=== PATIENT | male | born 1955 | race Caucasian/White ===

== ENCOUNTER 2019-04-29 06:14 | Inpatient (IN) | payer MEDICARE, OTHER ==
[~2019-04-29] VITALS: Ht 180.3 cm; Wt 120.0 kg
[~2019-04-29 06:14] MED LIST: AMIT50TA PO; AMLODIPINE PO; CHOL10003 PO; GABA-826 PO; LISINOPRIL PO; MULT-516 PO; OMEP-110 PO; PRAVASTATIN PO; ZETIA PO
[2019-04-29] MEDS ORDERED: BACITRACIN 50,000 UNIT ONE (06:37)
[2019-04-29] MEDS ORDERED: BUPIVACAINE/PF 0.5% ONE (06:37)
[2019-04-29] MEDS ORDERED: THROMBIN 5,000 UNIT VIAL TP ONE (06:37)
[2019-04-29] MEDS ORDERED: EPINEPHRINE 1 MG/ML, 1ML ONE (06:37)
[2019-04-29] MEDS ORDERED: DULO30CA2 PO (07:09)
[2019-04-29] MEDS ORDERED: DISU250T15 PO (07:09)
[2019-04-29] MEDS ORDERED: LISI40TA PO (07:14)
[2019-04-29] MEDS ORDERED: AMLO10TA8 PO (07:14)
[2019-04-29] MEDS ORDERED: EZET10TA70 PO (07:14)
[2019-04-29] MEDS ORDERED: PRAV40TA2 PO (07:14)
[2019-04-29] MEDS ORDERED: LACTATED RINGERS 1,000 ML IV SCH (07:20)
[2019-04-29] MEDS ORDERED: FENTANYL PF 250 MCG/5ML ONE (09:53)
[2019-04-29] MEDS ORDERED: MIDAZOLAM 1 MG/ML, 2ML ONE (09:53)
[2019-04-29] MEDS ORDERED: ACETAMINOPHEN 500 MG TABLET ONE ×2 (10:34→11:01)
[2019-04-29] MEDS ORDERED: GABAPENTIN 300 MG CAPSULE ONE ×2 (10:34→11:01)
[2019-04-29] MEDS ORDERED: PROPOFOL 250 ML ONE (10:47)
[2019-04-29] MEDS ORDERED: EPHEDRINE 50 MG/ML, 1ML ONE (11:01)
[2019-04-29] MEDS ORDERED: LABETALOL 5MG/ML, 20ML IV PRN (12:30)
[2019-04-29] MEDS ORDERED: MEPERIDINE/PF 25MG/0.5ML IVPush PRN (12:30)
[2019-04-29] MEDS ORDERED: PROMETHAZINE 25 MG/ML, 1ML IV PRN (12:30)
[2019-04-29] MEDS ORDERED: DIAZEPAM 5 MG/ML, 2ML IVPush PRN (12:30)
[2019-04-29] MEDS ORDERED: ALBUTEROL SULFATE 2.5 MG/3 ML NPPB PRN (12:30)
[2019-04-29] MEDS ORDERED: OXYcodone 5 MG/5 ML ORAL.SOL UDC PO PRN (12:30)
[2019-04-29] MEDS ORDERED: ACETAMINOPHEN 325 MG TABLET PO PRN (12:30)
[2019-04-29] MEDS ORDERED: hydrALAzine 20 MG/ML, 1ML IV PRN (12:30)
[2019-04-29] MEDS ORDERED: VANCOMYCIN 1,000 MG ONE (13:11)
[2019-04-29] MEDS ORDERED: GLYCOPYRROLATE 0.2MG/1ML, 5ML ONE (13:33)
[2019-04-29] MEDS ORDERED: ONDANSETRON 2MG/ML, 2ML ONE (13:33)
[2019-04-29] MEDS ORDERED: CEFAZOLIN 1,000 MG ONE (13:33)
[2019-04-29] MEDS ORDERED: DEXAMETHASONE 4 MG/ML, 1ML ONE (13:33)
[2019-04-29] MEDS ORDERED: SUCCINYLCHOLINE 20 MG/ML, 10ML ONE (13:33)
[2019-04-29] MEDS ORDERED: ROCURONIUM 10MG/ML,5ML ONE (13:33)
[2019-04-29] MEDS ORDERED: PROPOFOL 10 MG/ML, 20ML ONE (13:33)
[2019-04-29] MEDS ORDERED: NEOSTIGMINE 1 MG/ML, 10ML ONE (13:33)
[2019-04-29] MEDS ORDERED: OXYcodone 5 MG/5 ML ORAL.SOL UDC ONE (14:17)
[2019-04-29] MEDS ORDERED: FENTANYL PF 100 MCG/2ML ONE (14:17)
[2019-04-29] MEDS: FENTANYL PF 100 MCG/2ML IV PRN ×2 (14:18→14:30)
[2019-04-29] MEDS ORDERED: HYDROmorphone 1 MG/ML, 1ML VIAL ONE (14:18)
[2019-04-29] MEDS ORDERED: HYDROmorphone PCA 30 MG/30 ML IV PRN (14:30)
[2019-04-29] MEDS: HYDROmorphone 2 MG/ML, 1ML IVPush PRN ×2 (14:37→14:51)
[2019-04-29] MEDS ORDERED: hydrALAzine 20 MG/ML, 1ML ONE (15:13)
[2019-04-29 16:10] VITALS: BP 152/97
[2019-04-29] MEDS ORDERED: CYCLOBENZAPRINE 10 MG TABLET PO PRN (16:30)
[2019-04-29] MEDS ORDERED: morphine SULFATE 10 MG/ML, 1ML IV PRN (16:30)
[2019-04-29] MEDS ORDERED: PROMETHAZINE 25 MG/ML, 1ML IM PRN (16:30)
[2019-04-29] MEDS ORDERED: ONDANSETRON 2MG/ML, 2ML IV PRN (16:30)
[2019-04-29] MEDS ORDERED: DIPHENHYDRAMINE 25 MG CAPSULE PO PRN (16:30)
[2019-04-29] MEDS ORDERED: DIPHENHYDRAMINE 50 MG/ML, 1ML IVPush PRN (16:30)
[2019-04-29] MEDS ORDERED: MAGNESIUM HYDROXIDE 8%, 30ML UDC PO PRN (16:30)
[2019-04-29] MEDS ORDERED: BISACODYL 10 MG SUPP PR PRN (16:30)
[2019-04-29] MEDS: NS + 20MEQ KCL 1,000 ML IV SCH (16:47)
[2019-04-29 18:55] VITALS: BP 123/93
[2019-04-29] MEDS: CEFAZOLIN PMX 1GM/50ML 50 ML IVPB SCH (19:45)
[2019-04-29] MEDS: EZETIMIBE 10 MG TABLET PO SCH (22:08)
[2019-04-29] MEDS: PRAVASTATIN 40 MG TABLET PO SCH (22:08)
[2019-04-29] MEDS: GABAPENTIN 100 MG CAPSULE PO SCH (22:08)
[2019-04-29] MEDS: AMITRIPTYLINE 50 MG TABLET PO SCH (22:08)
[2019-04-29 23:17] VITALS: BP 131/74
[2019-04-30] MEDS: CEFAZOLIN PMX 1GM/50ML 50 ML IVPB SCH (03:21)
[2019-04-30] MEDS: NS + 20MEQ KCL 1,000 ML IV SCH ×3 (03:21→22:30)
[2019-04-30 03:44] VITALS: BP 155/96
[2019-04-30 05:37] LABS: BASOPHILS # (AUTO) 0.02 x10^3/uL (0-0.1); BASOPHILS % (AUTO) 0 % (0-1); EOSINOPHILS # (AUTO) 0.09 x10^3/uL (0-0.4); EOSINOPHILS % (AUTO) 1 % (1-7); LYMPHOCYTES # (AUTO) 1.77 x10^3/uL (1-3.4); LYMPHOCYTES % (AUTO) 18 % (22-44); MD NO; MEAN CORPUSCULAR HEMOGLOBIN 30.5 pg (27.5-34.5); MEAN CORPUSCULAR HGB CONC 32.9 g/dL (33.2-36.2); MEAN CORPUSCULAR VOLUME 92.8 fL (81-97); MEAN PLATELET VOLUME 8.1 fL (7.4-10.4); MONOCYTES # (AUTO) 0.69 x10^3/uL (0.2-0.8); MONOCYTES % (AUTO) 7 % (2-9); NEUTROPHILS % (AUTO) 74 % (42-75); PLATELET COUNT 244 x10^3/uL (130-400); RED BLOOD COUNT 3.81 x10^6/uL (4.38-5.82); RED CELL DISTRIBUTION WIDTH 14.3 % (9.4-14.8)
[2019-04-30] MEDS: OMEPRAZOLE 20 MG CAPSULE.DR PO SCH (05:52)
[2019-04-30 06:03] LABS: ANION GAP 7 mmol/L (5-15); CALCIUM 8.2 mg/dL (8.5-10.1); CHLORIDE 108 mmol/L (98-107)
[2019-04-30 06:04] LABS: CREATININE 0.89 mg/dL (0.7-1.3)
[2019-04-30 07:34] VITALS: BP 143/89
[2019-04-30] MEDS: DISULFIRAM 250 MG TABLET PO SCH (09:00)
[2019-04-30] MEDS: DULOXETINE 30 MG CAPSULE.DR PO SCH (09:42)
[2019-04-30] MEDS: AMLODIPINE 10 MG TAB PO SCH (09:42)
[2019-04-30] MEDS: GABAPENTIN 100 MG CAPSULE PO SCH ×2 (09:42→21:05)
[2019-04-30] MEDS: CHOLECALCIFEROL 1,000 UNIT TABLET PO SCH (09:42)
[2019-04-30] MEDS: LISINOPRIL 40 MG TABLET PO SCH (09:42)
[2019-04-30] MEDS: SENNA/DOCUSATE TABLET PO SCH (09:42)
[2019-04-30 13:27] VITALS: BP 138/90
[2019-04-30] MEDS: OXYcodone/APAP 10/325MG TABLET PO PRN ×4 (13:34→22:52)
[2019-04-30 15:30] VITALS: BP 142/84
[2019-04-30] MEDS: TIZANIDINE 4MG TABLET PO PRN ×2 (16:53→22:52)
[2019-04-30 19:47] VITALS: BP 129/85
[2019-04-30] MEDS: EZETIMIBE 10 MG TABLET PO SCH (21:05)
[2019-04-30] MEDS: AMITRIPTYLINE 50 MG TABLET PO SCH (21:05)
[2019-04-30] MEDS: PRAVASTATIN 40 MG TABLET PO SCH (21:05)
[2019-05-01 02:28] VITALS: BP 131/80
[2019-05-01 05:08] LABS: BASOPHILS # (AUTO) 0.03 x10^3/uL (0-0.1); BASOPHILS % (AUTO) 0 % (0-1); EOSINOPHILS # (AUTO) 0.32 x10^3/uL (0-0.4); EOSINOPHILS % (AUTO) 4 % (1-7); LYMPHOCYTES # (AUTO) 2.28 x10^3/uL (1-3.4); LYMPHOCYTES % (AUTO) 30 % (22-44); MD NO; MEAN CORPUSCULAR HEMOGLOBIN 29.8 pg (27.5-34.5); MEAN CORPUSCULAR HGB CONC 32.5 g/dL (33.2-36.2); MEAN CORPUSCULAR VOLUME 91.7 fL (81-97); MEAN PLATELET VOLUME 8.4 fL (7.4-10.4); MONOCYTES # (AUTO) 0.59 x10^3/uL (0.2-0.8); MONOCYTES % (AUTO) 8 % (2-9); NEUTROPHILS # (AUTO) 4.43 x10^3/uL (1.8-6.8); NEUTROPHILS % (AUTO) 58 % (42-75); PLATELET COUNT 200 x10^3/uL (130-400); RED BLOOD COUNT 3.78 x10^6/uL (4.38-5.82); RED CELL DISTRIBUTION WIDTH 14.4 % (9.4-14.8)
[2019-05-01] MEDS: OXYcodone/APAP 10/325MG TABLET PO PRN ×2 (05:42→13:41)
[2019-05-01] MEDS: TIZANIDINE 4MG TABLET PO PRN (05:42)
[2019-05-01] MEDS: OMEPRAZOLE 20 MG CAPSULE.DR PO SCH (05:47)
[2019-05-01] MEDS: NS + 20MEQ KCL 1,000 ML IV SCH (07:21)
[2019-05-01 08:25] VITALS: BP 116/81
[2019-05-01] MEDS: DISULFIRAM 250 MG TABLET PO SCH (09:00)
[2019-05-01] MEDS: GABAPENTIN 100 MG CAPSULE PO SCH (09:00)
[2019-05-01] MEDS ORDERED: TIZA4TAB2 PO (09:16)
[2019-05-01] MEDS ORDERED: OXYC-432 PO (09:16)
[2019-05-01] MEDS: CHOLECALCIFEROL 1,000 UNIT TABLET PO SCH (09:18)
[2019-05-01] MEDS: SENNA/DOCUSATE TABLET PO SCH (09:18)
[2019-05-01] MEDS: DULOXETINE 30 MG CAPSULE.DR PO SCH (09:18)
[2019-05-01] MEDS: LISINOPRIL 40 MG TABLET PO SCH (09:19)
[2019-05-01] MEDS: AMLODIPINE 10 MG TAB PO SCH (09:19)
[2019-05-01 12:17] VITALS: BP 132/92
[2019-05-01 15:10] VITALS: BP 122/87
== END 2019-05-01 16:21 | disposition home or self-care (01) | DRG 472 ==
LOC: ORIP 06:14 → 4NE 16:05 → DCLOUNGE 05-01 16:06
PROVIDERS: ADMIT Neurological Surgery; ATTEND Neurological Surgery
PROC: 0RG40K1 Fusion of Cervicothoracic Vertebral Joint with Nonautologous Tissue Substitute, Posterior Approach, Posterior Column, Open Approach (ICD-10-PCS; 2019-04-29)
PROC: 01N10ZZ Release Cervical Nerve, Open Approach (ICD-10-PCS; 2019-04-29)
PROC: 01N80ZZ Release Thoracic Nerve, Open Approach (ICD-10-PCS; 2019-04-29)
PROC: 00NW0ZZ Release Cervical Spinal Cord, Open Approach (ICD-10-PCS; 2019-04-29)
PROC: 00NX0ZZ Release Thoracic Spinal Cord, Open Approach (ICD-10-PCS; 2019-04-29)
PROC: 4A11X4G Monitoring of Peripheral Nervous Electrical Activity, Intraoperative, External Approach (ICD-10-PCS; 2019-04-29)
PROC: 0RG10K1 Fusion of Cervical Vertebral Joint with Nonautologous Tissue Substitute, Posterior Approach, Posterior Column, Open Approach (ICD-10-PCS; principal; 2019-04-29 09:00)
DX: M48.02 Spinal stenosis, cervical region (principal); G95.20 Unspecified cord compression; M47.22 Other spondylosis with radiculopathy, cervical region; E66.9 Obesity, unspecified; I10 Essential (primary) hypertension; G89.29 Other chronic pain; E78.00 Pure hypercholesterolemia, unspecified; F41.9 Anxiety disorder, unspecified; F32.9 Major depressive disorder, single episode, unspecified; K21.9 Gastro-esophageal reflux disease without esophagitis; M19.90 Unspecified osteoarthritis, unspecified site; Z88.2 Allergy status to sulfonamides; Z88.8 Allergy status to other drugs, medicaments and biological substances; Z82.61 Family history of arthritis; Z83.3 Family history of diabetes mellitus; Z82.49 Family history of ischemic heart disease and other diseases of the circulatory system; Z68.36 Body mass index [BMI] 36.0-36.9, adult; Z87.891 Personal history of nicotine dependence
CPT/HCPCS: 36415; 72040; 80048; 85025; C1713; G0378; J0171; J0690; J1100; J1170; J2250; J2405; J2704; J2710; J3010; J3370; J3480; J0330; J0360; J7120

== ENCOUNTER 2019-05-10 19:59 | Inpatient (IN) | payer MEDICARE, OTHER ==
[~2019-05-10] VITALS: Ht 179.1 cm; Wt 105.0 kg
[~2019-05-10 19:59] MED LIST changes: +AMLO10TA8 PO; +DISU250T15 PO; +DULO30CA2 PO; +EZET10TA70 PO; +LISI40TA PO; +OXYC-432 PO; +PRAV40TA2 PO; +TIZA4TAB2 PO
[2019-05-10 20:22] LABS: BASOPHILS # (AUTO) 0.01 x10^3/uL (0-0.1); BASOPHILS % (AUTO) 0 % (0-1); EOSINOPHILS # (AUTO) 0.28 x10^3/uL (0-0.4); EOSINOPHILS % (AUTO) 2 % (1-7); LYMPHOCYTES % (AUTO) 7 % (22-44); MD NO; MEAN CORPUSCULAR HEMOGLOBIN 29.9 pg (27.5-34.5); MEAN CORPUSCULAR HGB CONC 32.7 g/dL (33.2-36.2); MEAN CORPUSCULAR VOLUME 91.3 fL (81-97); MEAN PLATELET VOLUME 7.7 fL (7.4-10.4); MONOCYTES # (AUTO) 0.89 x10^3/uL (0.2-0.8); MONOCYTES % (AUTO) 5 % (2-9); NEUTROPHILS # (AUTO) 14.98 x10^3/uL (1.8-6.8); NEUTROPHILS % (AUTO) 86 % (42-75); PLATELET COUNT 418 x10^3/uL (130-400); RED BLOOD COUNT 3.57 x10^6/uL (4.38-5.82); RED CELL DISTRIBUTION WIDTH 14.2 % (9.4-14.8)
[2019-05-10] MEDS ORDERED: SODIUM CHLORIDE FLUSH 10ML SYR IVF ONE (20:30)
[2019-05-10] MEDS ORDERED: SODIUM CHLORIDE 0.9% 1,000ML IVBOLUS ONE (20:30)
[2019-05-10 20:34] LABS: ALANINE AMINOTRANSFERASE 26 U/L (12-78); ALBUMIN 2.8 g/dL (3.4-5.0); ANION GAP 8 mmol/L (5-15); CALCIUM 7.7 mg/dL (8.5-10.1); CHLORIDE 103 mmol/L (98-107); CREATININE 1.66 mg/dL (0.7-1.3)
[2019-05-10 20:36] LABS: ALKALINE PHOSPHATASE 96 U/L (45-117); BILIRUBIN,TOTAL 0.6 mg/dL (0.2-1.0); TOTAL PROTEIN 6.2 g/dL (6.4-8.2)
[2019-05-10] MEDS ORDERED: CEFTRIAXONE PMX 1GM/50ML 50 ML ONE (20:40)
[2019-05-10 20:58] LABS: TROPONIN I 0.117 ng/mL (0.000-0.045)
[2019-05-10] MEDS ORDERED: CEFTRIAXONE PMX 1GM/50ML 50 ML IVPB ONE (21:00)
[2019-05-10] MEDS ORDERED: AZITHROMYCIN 500 MG in SODIUM CHLORIDE 0.9% 250 ML IVPB ONE (21:00)
--- NOTE | 2019-05-10 21:01 | NUR ---
PATIENT UPDATED ON PLAN OF CARE. THE PATIENT'S VITAL SIGNS HAVE IMPROVED, TOLERATING INTERVENTIONS WELL. PATIENT WITH ONE-ON-ONE CARE WITH NURSE. PATIENT'S ORDERS HAVE BEEN CARRIED OUT PER MD ORDER. WILL CONTINUE TO MONITOR.
[2019-05-10] MEDS ORDERED: ALBUTEROL/IPRATROPIUM 2.5MG/0.5MG, 3 ML ONE (21:12)
[2019-05-10] MEDS ORDERED: ALBUTEROL/IPRATROPIUM 2.5MG/0.5MG, 3 ML NPPB ONE (21:30)
--- NOTE | 2019-05-10 21:32 | NUR ---
updated MD ON PLAN OF CARE. PATIENT TOLERATING INTERVNETIONS WELL. PATIENT SWITCHED TO OXY MASK AT 15L. PATIENT IS A MOUTH BREATHER AND DID NOT TOLERATE HIGH FLOW NASAL CANNULA. PATIENT'S VITAL SIGNS ARE IMPROVING. WILL CONTINUE TO MONITOR. BREATHING TREATMENT COMPLETED VIA RESPIRATORY
--- NOTE | 2019-05-10 21:52 | NUR ---
PATIENT LYING IN BED, RESTING/EVEN UNLABORED RESPIRATIONS. TOLERATING OXY MASK WELL, PATIENT ABLE TO HOLD OXYGENATION SATURATION WELL. VITAL SIGNS HAVE IMPROVED. WILL CONTINUE TO MONITOR.
[2019-05-10] MEDS ORDERED: SODIUM CHLORIDE FLUSH 10ML SYR IVF PRN (22:00)
[2019-05-10] MEDS ORDERED: SODIUM CHLORIDE 0.9% 1,000 ML IV SCH (22:20)
--- NOTE | 2019-05-10 22:26 | NUR ---
REPORT GIVEN TO TARIK VALDEZ
[2019-05-10] MEDS ORDERED: PROMETHAZINE 25 MG/ML, 1ML IM PRN (22:30)
[2019-05-10] MEDS ORDERED: THIAMINE 200 MG in SODIUM CHLORIDE 0.9% 50 ML IV ONE (22:30)
[2019-05-10] MEDS ORDERED: LABETALOL 5 MG/ML SYR. (IV ONLY) IVPush PRN (22:30)
[2019-05-10] MEDS ORDERED: ONDANSETRON 2MG/ML, 2ML IVPush PRN (22:30)
[2019-05-10] MEDS ORDERED: ACETAMINOPHEN 325 MG TABLET PO PRN (22:30)
[2019-05-10] MEDS ORDERED: FOLIC ACID 1 MG TABLET PO ONE (22:30)
[2019-05-10] MEDS ORDERED: morphine SULFATE 10 MG/ML, 1ML IVPush PRN (22:30)
[2019-05-10 23:13] LABS: INTERNATIONAL NORMALIZED RATIO 1.14 (0.93-1.1); PROTHROMBIN TIME 11.9 Seconds (9.6-11.5)
--- NOTE | 2019-05-10 23:16 | NUR ---
RAPID FLU COLLECTED AND TAKEN TO LAB. PT TAKEN TO CT
--- NOTE | 2019-05-10 23:17 | NUR ---
REPORT GIVEN TO AVI VALDEZ
[2019-05-10] MEDS ORDERED: CEFTRIAXONE PMX 1GM/50ML 50 ML IV ONE (23:30)
[2019-05-10 23:40] LABS: RAPID INFLUENZA A Negative (Negative); RAPID INFLUENZA B Negative (Negative)
[2019-05-10] MEDS ORDERED: OMNIPAQUE 350 MG/ML, 100ML BOTTLE ONE (23:46)
[2019-05-11 00:08] VITALS: BP 130/77
[2019-05-11] MEDS ORDERED: ALBUTEROL/IPRATROPIUM 2.5MG/0.5MG, 3 ML NPPB PRN (01:00)
[2019-05-11] MEDS: OXYcodone/APAP 5/325MG TABLET PO PRN ×5 (01:04→17:42)
[2019-05-11 01:07] LABS: AMPHETAMINE SCREEN, URINE Negative (Negative); BARBITURATE SCREEN, URINE Negative (Negative); BENZODIAZEPINE SCREEN, URINE Positive (Negative); CANNABINOID SCREEN, URINE Positive (Negative); CHLORIDE,URINE RANDOM 18 mmol/L; POTASSIUM,URINE RANDOM 40 mmol/L; SODIUM,URINE RANDOM 16 mmol/L
[2019-05-11] MEDS: HEPARIN 5,000 UNITS/ML, 1ML SQ SCH ×3 (01:09→17:43)
[2019-05-11 01:16] LABS: COCAINE SCREEN, URINE Negative (Negative); METHADONE SCREEN, URINE Negative (Negative); OPIATE SCREEN, URINE Positive (Negative)
[2019-05-11] MEDS ORDERED: LORazepam 0.5MG TABLET PO PRN (01:30)
[2019-05-11] MEDS ORDERED: LORazepam 2 MG/ML, 1ML IV PRN ×5 (01:30)
[2019-05-11] MEDS ORDERED: LORazepam 1MG TABLET PO PRN ×3 (01:30)
[2019-05-11] MEDS ORDERED: PHARMACY MAY ADJ FOR RENAL FX MC PRN (01:30)
[2019-05-11 02:17] LABS: BASOPHILS # (AUTO) 0.02 x10^3/uL (0-0.1); BASOPHILS % (AUTO) 0 % (0-1); EOSINOPHILS # (AUTO) 0.06 x10^3/uL (0-0.4); EOSINOPHILS % (AUTO) 0 % (1-7); LYMPHOCYTES # (AUTO) 1.56 x10^3/uL (1-3.4); LYMPHOCYTES % (AUTO) 9 % (22-44); MD NO; MEAN CORPUSCULAR HEMOGLOBIN 28.7 pg (27.5-34.5); MEAN CORPUSCULAR HGB CONC 31.9 g/dL (33.2-36.2); MEAN CORPUSCULAR VOLUME 89.8 fL (81-97); MEAN PLATELET VOLUME 7.5 fL (7.4-10.4); MONOCYTES # (AUTO) 0.96 x10^3/uL (0.2-0.8); MONOCYTES % (AUTO) 6 % (2-9); NEUTROPHILS # (AUTO) 14.12 x10^3/uL (1.8-6.8); NEUTROPHILS % (AUTO) 84 % (42-75); PLATELET COUNT 387 x10^3/uL (130-400); RED BLOOD COUNT 3.48 x10^6/uL (4.38-5.82); RED CELL DISTRIBUTION WIDTH 14.2 % (9.4-14.8)
[2019-05-11 02:32] LABS: ALANINE AMINOTRANSFERASE 29 U/L (12-78); ALBUMIN 2.6 g/dL (3.4-5.0); ANION GAP 7 mmol/L (5-15); CALCIUM 7.8 mg/dL (8.5-10.1); CHLORIDE 105 mmol/L (98-107); CREATININE 1.14 mg/dL (0.7-1.3)
[2019-05-11 02:36] LABS: ALKALINE PHOSPHATASE 96 U/L (45-117); BILIRUBIN,TOTAL 0.5 mg/dL (0.2-1.0); CHOL/HDL RATIO 3.4; CHOLESTEROL, TOTAL 98 mg/dL (140-239); HDL CHOL % 30 % (26-37); HDL CHOLESTEROL (DIRECT) 29 mg/dL (40-60); LDL CHOLESTEROL,CALCULATED 45 mg/dL (54-169); LDL/HDL RATIO 1.6 (0.5-3.0); TOTAL PROTEIN 6.1 g/dL (6.4-8.2); TRIGLYCERIDES 122 mg/dL (50-200); VLDL CHOLESTEROL 24 mg/dL (0-25)
[2019-05-11 02:38] LABS: TROPONIN I 0.073 ng/mL (0.000-0.045)
[2019-05-11 07:43] VITALS: BP 111/75
[2019-05-11 08:00] LABS: TROPONIN I 0.041 ng/mL (0.000-0.045)
[2019-05-11] MEDS: DULOXETINE 30 MG CAPSULE.DR PO SCH (09:40)
[2019-05-11] MEDS: SENNA/DOCUSATE TABLET PO SCH (09:40)
[2019-05-11] MEDS: MULTIVITAMINS/MINERALS TABLET PO SCH (09:40)
[2019-05-11] MEDS: AMLODIPINE 10 MG TAB PO SCH (09:40)
[2019-05-11] MEDS: THIAMINE 100MG TABLET PO SCH (09:40)
[2019-05-11] MEDS: METOPROLOL TARTRATE 25 MG TABLET PO SCH ×2 (12:57→20:59)
[2019-05-11 14:23] VITALS: BP 133/93
[2019-05-11] MEDS: LORazepam 1MG TABLET PO PRN (15:21)
[2019-05-11] MEDS ORDERED: ALBUTEROL SULFATE 2.5 MG/3 ML NPPB PRN (17:30)
[2019-05-11 19:11] VITALS: BP 131/66
[2019-05-11] MEDS: AZITHROMYCIN 500 MG in SODIUM CHLORIDE 0.9% 250 ML IV SCH (21:00)
[2019-05-12] MEDS: OXYcodone/APAP 5/325MG TABLET PO PRN ×2 (00:04→08:12)
[2019-05-12] MEDS: CEFTRIAXONE PMX 2GM/50ML 50 ML IV SCH (01:22)
[2019-05-12 01:35] VITALS: BP 124/67
[2019-05-12] MEDS: HEPARIN 5,000 UNITS/ML, 1ML SQ SCH ×3 (03:15→20:02)
[2019-05-12] MEDS: METOPROLOL TARTRATE 25 MG TABLET PO SCH ×3 (03:42→20:03)
[2019-05-12] MEDS: LORazepam 1MG TABLET PO PRN ×4 (03:43→20:03)
[2019-05-12] MEDS: SENNA/DOCUSATE TABLET PO SCH (08:04)
[2019-05-12] MEDS: AMLODIPINE 10 MG TAB PO SCH (08:04)
[2019-05-12] MEDS: DULOXETINE 30 MG CAPSULE.DR PO SCH (08:04)
[2019-05-12] MEDS: THIAMINE 100MG TABLET PO SCH (08:04)
[2019-05-12] MEDS: MULTIVITAMINS/MINERALS TABLET PO SCH (08:04)
[2019-05-12 08:16] VITALS: BP 145/74
[2019-05-12] MEDS ORDERED: THIAMINE 100 MG in DEXTROSE 5% 50 ML IVPB SCH (09:00)
[2019-05-12 12:18] VITALS: BP 139/96
[2019-05-12] MEDS: CHLORDIAZEPOXIDE 25 MG CAPSULE PO SCH ×3 (12:22→20:02)
[2019-05-12 12:47] LABS: ANION GAP 8 mmol/L (5-15); CALCIUM 8.4 mg/dL (8.5-10.1); CHLORIDE 104 mmol/L (98-107); CREATININE 0.77 mg/dL (0.7-1.3)
[2019-05-12] MEDS ORDERED: OMNIPAQUE 350 MG/ML, 100ML BOTTLE ONE (13:14)
[2019-05-12 13:15] LABS: BASOPHILS # (AUTO) 0.12 x10^3/uL (0-0.1); BASOPHILS % (AUTO) 1 % (0-1); EOSINOPHILS # (AUTO) 0.17 x10^3/uL (0-0.4); EOSINOPHILS % (AUTO) 1 % (1-7); LYMPHOCYTES # (AUTO) 1.98 x10^3/uL (1-3.4); LYMPHOCYTES % (AUTO) 15 % (22-44); MD SCAN; MEAN CORPUSCULAR HEMOGLOBIN 29.6 pg (27.5-34.5); MEAN CORPUSCULAR HGB CONC 32.4 g/dL (33.2-36.2); MEAN CORPUSCULAR VOLUME 91.5 fL (81-97); MEAN PLATELET VOLUME 7.9 fL (7.4-10.4); MONOCYTES # (AUTO) 0.72 x10^3/uL (0.2-0.8); MONOCYTES % (AUTO) 6 % (2-9); NEUTROPHILS # (AUTO) 10.03 x10^3/uL (1.8-6.8); NEUTROPHILS % (AUTO) 77 % (42-75); PLATELET COUNT 414 x10^3/uL (130-400); RED BLOOD COUNT 3.54 x10^6/uL (4.38-5.82); RED CELL DISTRIBUTION WIDTH 14.8 % (9.4-14.8)
[2019-05-12] MEDS: AZITHROMYCIN 500 MG in SODIUM CHLORIDE 0.9% 250 ML IV SCH (20:02)
[2019-05-12 20:46] VITALS: BP 142/93
[2019-05-13] MEDS: CEFTRIAXONE PMX 2GM/50ML 50 ML IV SCH (00:11)
[2019-05-13] MEDS: OXYcodone/APAP 5/325MG TABLET PO PRN ×3 (00:12→19:57)
[2019-05-13 03:46] VITALS: BP 154/84
[2019-05-13] MEDS: HEPARIN 5,000 UNITS/ML, 1ML SQ SCH ×2 (04:25→16:02)
[2019-05-13 05:46] LABS: ANION GAP 5 mmol/L (5-15); BASOPHILS # (AUTO) 0.01 x10^3/uL (0-0.1); BASOPHILS % (AUTO) 0 % (0-1); CALCIUM 7.9 mg/dL (8.5-10.1); CHLORIDE 106 mmol/L (98-107); CREATININE 0.68 mg/dL (0.7-1.3); EOSINOPHILS # (AUTO) 0.06 x10^3/uL (0-0.4); EOSINOPHILS % (AUTO) 1 % (1-7); LYMPHOCYTES % (AUTO) 19 % (22-44); MD NO; MEAN CORPUSCULAR HEMOGLOBIN 29.2 pg (27.5-34.5); MEAN CORPUSCULAR HGB CONC 32.2 g/dL (33.2-36.2); MEAN CORPUSCULAR VOLUME 90.8 fL (81-97); MEAN PLATELET VOLUME 7.8 fL (7.4-10.4); MONOCYTES # (AUTO) 0.61 x10^3/uL (0.2-0.8); MONOCYTES % (AUTO) 7 % (2-9); NEUTROPHILS # (AUTO) 6.43 x10^3/uL (1.8-6.8); NEUTROPHILS % (AUTO) 73 % (42-75); PLATELET COUNT 418 x10^3/uL (130-400); RED BLOOD COUNT 3.35 x10^6/uL (4.38-5.82); RED CELL DISTRIBUTION WIDTH 14.5 % (9.4-14.8)
[2019-05-13] MEDS: CHLORDIAZEPOXIDE 25 MG CAPSULE PO SCH (06:08)
[2019-05-13] MEDS: METOPROLOL TARTRATE 25 MG TABLET PO SCH ×4 (06:08→19:55)
[2019-05-13 06:36] VITALS: BP 144/91
[2019-05-13] MEDS: MULTIVITAMINS/MINERALS TABLET PO SCH (09:11)
[2019-05-13] MEDS: SENNA/DOCUSATE TABLET PO SCH (09:11)
[2019-05-13] MEDS: AMLODIPINE 10 MG TAB PO SCH (09:11)
[2019-05-13] MEDS: DULOXETINE 30 MG CAPSULE.DR PO SCH (09:11)
[2019-05-13] MEDS: THIAMINE 100MG TABLET PO SCH (09:11)
[2019-05-13] MEDS ORDERED: POTASSIUM CHLORIDE 20 MEQ TAB.ER.PRT PO ONE (11:00)
[2019-05-13 13:35] VITALS: BP 144/91
[2019-05-13 18:36] VITALS: BP 138/87
[2019-05-13] MEDS: AZITHROMYCIN 500 MG in SODIUM CHLORIDE 0.9% 250 ML IV SCH (19:55)
[2019-05-13] MEDS ORDERED: CALCIUM CARBONATE 500 MG TAB.CHEW ONE (22:38)
[2019-05-13] MEDS ORDERED: CALCIUM CARBONATE 500 MG TAB.CHEW PO PRN (23:00)
[2019-05-14] MEDS: HEPARIN 5,000 UNITS/ML, 1ML SQ SCH ×3 (00:59→17:14)
[2019-05-14] MEDS: CEFTRIAXONE PMX 2GM/50ML 50 ML IV SCH (01:00)
[2019-05-14 01:05] VITALS: BP 134/65
[2019-05-14] MEDS: OXYcodone/APAP 5/325MG TABLET PO PRN ×4 (01:38→22:53)
[2019-05-14] MEDS: METOPROLOL TARTRATE 25 MG TABLET PO SCH ×2 (05:28→11:06)
[2019-05-14 06:17] LABS: BASOPHILS # (AUTO) 0.04 x10^3/uL (0-0.1); BASOPHILS % (AUTO) 1 % (0-1); EOSINOPHILS # (AUTO) 0.18 x10^3/uL (0-0.4); EOSINOPHILS % (AUTO) 3 % (1-7); LYMPHOCYTES # (AUTO) 1.99 x10^3/uL (1-3.4); LYMPHOCYTES % (AUTO) 29 % (22-44); MD NO; MEAN CORPUSCULAR HEMOGLOBIN 28.7 pg (27.5-34.5); MEAN CORPUSCULAR HGB CONC 31.8 g/dL (33.2-36.2); MEAN CORPUSCULAR VOLUME 90.3 fL (81-97); MONOCYTES # (AUTO) 0.62 x10^3/uL (0.2-0.8); MONOCYTES % (AUTO) 9 % (2-9); NEUTROPHILS # (AUTO) 4.13 x10^3/uL (1.8-6.8); NEUTROPHILS % (AUTO) 59 % (42-75); PLATELET COUNT 452 x10^3/uL (130-400); RED CELL DISTRIBUTION WIDTH 14.7 % (9.4-14.8)
[2019-05-14 06:28] LABS: ANION GAP 5 mmol/L (5-15); CALCIUM 8.4 mg/dL (8.5-10.1); CHLORIDE 104 mmol/L (98-107)
[2019-05-14 06:33] LABS: % IRON SATURATION 11 % (20-55); IRON LEVEL 22 mcg/dL (65-175); TOTAL IRON BINDING CAPACITY 206 mcg/dL (250-450)
[2019-05-14 06:42] VITALS: BP 142/94
[2019-05-14] MEDS: SENNA/DOCUSATE TABLET PO SCH (09:00)
[2019-05-14] MEDS ORDERED: REGADENOSON 0.4 MG/5 ML SYRINGE ONE (09:03)
[2019-05-14] MEDS: DULOXETINE 30 MG CAPSULE.DR PO SCH (11:06)
[2019-05-14] MEDS: THIAMINE 100MG TABLET PO SCH (11:07)
[2019-05-14] MEDS: AMLODIPINE 10 MG TAB PO SCH (11:07)
[2019-05-14] MEDS: MULTIVITAMINS/MINERALS TABLET PO SCH (11:07)
[2019-05-14] MEDS ORDERED: POTASSIUM CHLORIDE 20 MEQ TAB.ER.PRT PO ONE (11:30)
[2019-05-14] MEDS: FOLIC ACID 1 MG TABLET PO SCH (12:57)
[2019-05-14] MEDS: IRON SUCROSE COMPLEX 100MG/5ML IV SCH (12:57)
[2019-05-14 14:01] VITALS: BP 153/94
[2019-05-14] MEDS: METOPROLOL TARTRATE 50 MG TABLET PO SCH (17:14)
[2019-05-14 19:23] VITALS: BP 126/84
[2019-05-14] MEDS: AZITHROMYCIN 500 MG in SODIUM CHLORIDE 0.9% 250 ML IV SCH (21:08)
[2019-05-15] MEDS: HEPARIN 5,000 UNITS/ML, 1ML SQ SCH ×2 (01:05→09:23)
[2019-05-15] MEDS: CEFTRIAXONE PMX 2GM/50ML 50 ML IV SCH (01:05)
[2019-05-15 01:27] VITALS: BP 144/90
[2019-05-15] MEDS: OXYcodone/APAP 5/325MG TABLET PO PRN (01:32)
[2019-05-15] MEDS: METOPROLOL TARTRATE 50 MG TABLET PO SCH (05:27)
[2019-05-15] MEDS ORDERED: METOPROLOL SUCCINATE 50 MG TAB.ER.24H PO SCH (06:00)
[2019-05-15 06:27] LABS: ANION GAP 5 mmol/L (5-15); CALCIUM 8.6 mg/dL (8.5-10.1); CHLORIDE 105 mmol/L (98-107)
[2019-05-15 06:30] LABS: CREATININE 0.92 mg/dL (0.7-1.3)
[2019-05-15 07:20] VITALS: BP 143/89
[2019-05-15] MEDS ORDERED: LISINOPRIL 10 MG TABLET PO SCH (09:00)
[2019-05-15] MEDS: IRON SUCROSE COMPLEX 100MG/5ML IV SCH (09:14)
[2019-05-15] MEDS: SENNA/DOCUSATE TABLET PO SCH (09:18)
[2019-05-15] MEDS: MULTIVITAMINS/MINERALS TABLET PO SCH (09:19)
[2019-05-15] MEDS: FOLIC ACID 1 MG TABLET PO SCH (09:19)
[2019-05-15] MEDS: THIAMINE 100MG TABLET PO SCH (09:19)
[2019-05-15] MEDS: AMLODIPINE 10 MG TAB PO SCH (09:20)
[2019-05-15] MEDS: DULOXETINE 30 MG CAPSULE.DR PO SCH (09:20)
[2019-05-15] MEDS ORDERED: FERR324T5 PO (10:59)
[2019-05-15] MEDS ORDERED: AZIT500T PO (10:59)
[2019-05-15] MEDS ORDERED: CEFD300C37 PO (10:59)
[2019-05-15] MEDS ORDERED: METO50TA82 PO (10:59)
== END 2019-05-15 13:05 | disposition home or self-care (01) | DRG 871 ==
LOC: ED 21:37 → EDIP 21:48 → 5SO 23:54 → DCLOUNGE 05-15 12:43
PROVIDERS: ADMIT Family Medicine; ATTEND Internal Medicine
DX: A41.9 Sepsis, unspecified organism (principal); G93.41 Metabolic encephalopathy; I50.21 Acute systolic (congestive) heart failure; J15.9 Unspecified bacterial pneumonia; J96.01 Acute respiratory failure with hypoxia; I21.4 Non-ST elevation (NSTEMI) myocardial infarction; D62 Acute posthemorrhagic anemia; E44.0 Moderate protein-calorie malnutrition; N17.9 Acute kidney failure, unspecified; E27.9 Disorder of adrenal gland, unspecified; E78.00 Pure hypercholesterolemia, unspecified; E78.5 Hyperlipidemia, unspecified; F10.10 Alcohol abuse, uncomplicated; F32.9 Major depressive disorder, single episode, unspecified; I11.0 Hypertensive heart disease with heart failure; I49.3 Ventricular premature depolarization; K21.9 Gastro-esophageal reflux disease without esophagitis; R65.20 Severe sepsis without septic shock; Z96.652 Presence of left artificial knee joint; Z96.641 Presence of right artificial hip joint; R73.9 Hyperglycemia, unspecified; Z96.612 Presence of left artificial shoulder joint; Z96.611 Presence of right artificial shoulder joint; M50.30 Other cervical disc degeneration, unspecified cervical region; F17.210 Nicotine dependence, cigarettes, uncomplicated; F12.90 Cannabis use, unspecified, uncomplicated; Z68.32 Body mass index [BMI] 32.0-32.9, adult; Z98.1 Arthrodesis status
CPT/HCPCS: 36415; 36600; 70460; 70491; 71045; 71275; 78452; 80048; 80053; 80061; 80307; 82140; 82436; 82570; 82728; 82803; 82962; 83540; 83550; 83605; 83735; 83880; 84100; 84133; 84145; 84300; 84443; 84484; 85025; 85610; 87040; 87070; 87077; 87186; 87205; 87400; 93005; 93017; 93306; 93970; 94640; 96365; 96368; G0378; J0456; J0696; J1644; J1756; J2785; J3411; J7620; Q9967; A9502; J7030; J7050

== ENCOUNTER 2019-12-05 23:28 | Emergency (ER) | payer MEDICARE, OTHER ==
[~2019-12-05] VITALS: Ht 180.3 cm; Wt 109.0 kg
[~2019-12-05 23:28] MED LIST changes: +AZIT500T PO; +CEFD300C37 PO; +FERR324T5 PO; +METO50TA82 PO
--- NOTE | 2019-12-05 23:46 | NUR ---
pt resting on gurney, monitors applied, provided pt with blankey, siderails up x2, call light within reach
[2019-12-05] MEDS ORDERED: BUPR-173 PO (23:49)
[2019-12-05] MEDS ORDERED: AMLO2.5T2 PO (23:49)
[2019-12-06 00:45] VITALS: BP 110/52
--- NOTE | 2019-12-06 00:45 | NUR ---
pt rsting calmly, denies needs, call light within reach. chart up for recheck
--- NOTE | 2019-12-06 01:06 | NUR ---
circle edger at pt's bedside to apply arm sling to left arm
--- NOTE | 2019-12-06 01:16 | NUR ---
pt alert and answers all questions appropriately, able to ambulate with steady gait
== END 2019-12-06 01:38 | disposition home or self-care (01) ==
LOC: ED 12-06 01:06
DX: G89.11 Acute pain due to trauma (principal); M25.512 Pain in left shoulder; F10.120 Alcohol abuse with intoxication, uncomplicated; I10 Essential (primary) hypertension; E78.00 Pure hypercholesterolemia, unspecified; K21.9 Gastro-esophageal reflux disease without esophagitis; Y90.9 Presence of alcohol in blood, level not specified; W01.0XXA Fall on same level from slipping, tripping and stumbling without subsequent striking against object, initial encounter; Y93.89 Activity, other specified; Y92.009 Unspecified place in unspecified non-institutional (private) residence as the place of occurrence of the external cause; Y99.8 Other external cause status
CPT/HCPCS: 99283